=== PATIENT | male | born 1985 | race Caucasian/White ===

== ENCOUNTER 2018-03-02 13:18 | Emergency (ER) | payer MEDICAID ==
[~2018-03-02] VITALS: Ht 180.3 cm; Wt 121.3 kg
[~2018-03-02 13:18] MED LIST: ALPR1TAB2; AMPH20CA7
[2018-03-02] MEDS ORDERED: HYDROmorphone 2 MG/ML, 1ML ONE (13:58)
[2018-03-02] MEDS ORDERED: ONDANSETRON ODT 4 MG PO ONE (14:00)
[2018-03-02] MEDS ORDERED: ONDANSETRON ODT 4 MG ONE (14:00)
[2018-03-02] MEDS ORDERED: HYDROmorphone 1 MG/ML, 1ML IM ONE (14:00)
[2018-03-02 14:09] VITALS: BP 113/75
[2018-03-02 14:13] LABS: BASOPHILS # (AUTO) 0.03 x10^3/uL (0-0.1); BASOPHILS % (AUTO) 0 % (0-1); EOSINOPHILS # (AUTO) 0.28 x10^3/uL (0-0.4); EOSINOPHILS % (AUTO) 4 % (1-7); LYMPHOCYTES # (AUTO) 1.19 x10^3/uL (1-3.4); LYMPHOCYTES % (AUTO) 18 % (22-44); MD NO; MEAN CORPUSCULAR HEMOGLOBIN 33.9 pg (27.5-34.5); MEAN CORPUSCULAR HGB CONC 34.8 g/dL (33.2-36.2); MEAN CORPUSCULAR VOLUME 97.5 fL (81-97); MEAN PLATELET VOLUME 8.1 fL (7.4-10.4); MONOCYTES # (AUTO) 0.77 x10^3/uL (0.2-0.8); MONOCYTES % (AUTO) 12 % (2-9); NEUTROPHILS # (AUTO) 4.21 x10^3/uL (1.8-6.8); NEUTROPHILS % (AUTO) 65 % (42-75); PLATELET COUNT 231 x10^3/uL (130-400); RED CELL DISTRIBUTION WIDTH 12.6 % (9.4-14.8)
[2018-03-02 14:22] LABS: ALANINE AMINOTRANSFERASE 28 U/L (12-78); ALBUMIN 3.8 g/dL (3.4-5.0); ANION GAP 5 mmol/L (5-15); CALCIUM 8.7 mg/dL (8.5-10.1); CHLORIDE 106 mmol/L (98-107); CREATININE 1.26 mg/dL (0.7-1.3)
[2018-03-02 14:24] LABS: ALKALINE PHOSPHATASE 77 U/L (45-117); BILIRUBIN,TOTAL 0.5 mg/dL (0.2-1.0); TOTAL PROTEIN 7.6 g/dL (6.4-8.2)
== END 2018-03-02 15:16 | disposition home or self-care (01) ==
LOC: ED 14:53
DX: K29.20 Alcoholic gastritis without bleeding (principal); K21.9 Gastro-esophageal reflux disease without esophagitis
CPT/HCPCS: 36415; 76700; 80053; 83690; 85025; 96372; 99285; J1170; Q0162

== ENCOUNTER 2019-06-21 14:21 | Inpatient (IN) | payer MEDICAID, OTHER ==
[~2019-06-21] VITALS: Ht 180.3 cm; Wt 114.5 kg
--- NOTE | 2019-06-21 14:51 | NUR ---
Pt presents to ED with c/o epigastric pain for two days and feeling "filled with gas". Pt reports soft stools and vomiting for two days. Pt states, "I have had gastritis before from drinking too much, but this doesn't feel like this. I drink 5-6 glasses of vodka a day and I use marijuana in the off season when I am unemployed. 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 Call light within reach and spouse at bedside.
[2019-06-21] MEDS ORDERED: SODIUM CHLORIDE FLUSH 10ML SYR IVF ONE (15:30)
[2019-06-21] MEDS ORDERED: ONDANSETRON 2MG/ML, 2ML IVPush ONE (15:30)
[2019-06-21] MEDS ORDERED: FAMOTIDINE 20 MG/2 ML IV ONE (15:30)
[2019-06-21] MEDS ORDERED: HYDROmorphone 1 MG/ML, 1ML INJ ONE ×4 (15:31→18:01)
[2019-06-21] MEDS ORDERED: ONDANSETRON 2MG/ML, 2ML ONE (15:31)
[2019-06-21] MEDS ORDERED: FAMOTIDINE 20 MG/2 ML ONE (15:31)
[2019-06-21] MEDS: HYDROmorphone 2 MG/ML, 1ML IVPush PRN ×4 (15:41→23:34)
[2019-06-21 15:44] LABS: BASOPHILS # (AUTO) 0.02 x10^3/uL (0-0.1); BASOPHILS % (AUTO) 0 % (0-1); EOSINOPHILS # (AUTO) 0.07 x10^3/uL (0-0.4); EOSINOPHILS % (AUTO) 1 % (1-7); LYMPHOCYTES # (AUTO) 1.05 x10^3/uL (1-3.4); LYMPHOCYTES % (AUTO) 11 % (22-44); MD NO; MEAN CORPUSCULAR HEMOGLOBIN 33.9 pg (27.5-34.5); MEAN CORPUSCULAR VOLUME 99.8 fL (81-97); MEAN PLATELET VOLUME 7.3 fL (7.4-10.4); MONOCYTES # (AUTO) 0.91 x10^3/uL (0.2-0.8); MONOCYTES % (AUTO) 10 % (2-9); NEUTROPHILS # (AUTO) 7.21 x10^3/uL (1.8-6.8); NEUTROPHILS % (AUTO) 78 % (42-75); PLATELET COUNT 233 x10^3/uL (130-400); RED BLOOD COUNT 4.51 x10^6/uL (4.38-5.82); RED CELL DISTRIBUTION WIDTH 13.9 % (9.4-14.8)
[2019-06-21 15:49] LABS: ALANINE AMINOTRANSFERASE 39 U/L (12-78); ALBUMIN 4.1 g/dL (3.4-5.0); ANION GAP 7 mmol/L (5-15); CALCIUM 9.2 mg/dL (8.5-10.1); CHLORIDE 105 mmol/L (98-107); CREATININE 0.91 mg/dL (0.7-1.3)
[2019-06-21 15:51] LABS: ALKALINE PHOSPHATASE 103 U/L (45-117); BILIRUBIN,TOTAL 0.6 mg/dL (0.2-1.0); TOTAL PROTEIN 7.8 g/dL (6.4-8.2)
[2019-06-21] MEDS ORDERED: MAALOX/HYOSCYAMINE/LIDOCAINE 45 ML BTL ONE (16:51)
[2019-06-21] MEDS ORDERED: SODIUM CHLORIDE 0.9% 1,000ML IVBOLUS ONE (17:00)
[2019-06-21] MEDS ORDERED: MAALOX/HYOSCYAMINE/LIDOCAINE 45 ML BTL PO ONE (17:00)
[2019-06-21] MEDS ORDERED: HYDROmorphone 2 MG/ML, 1ML IVPush PRN (17:00)
--- NOTE | 2019-06-21 17:03 | NUR ---
Pt transfered on gurney from ED to CT at this time. NADN. No needs expressed. PIV fluids infusing per EMAR. Meds given per EMAR.
--- NOTE | 2019-06-21 17:22 | NUR ---
Pt back to room from CT.
[2019-06-21] MEDS ORDERED: HYDROmorphone 1 MG/ML, 1ML INJ IVPush PRN (18:00)
[2019-06-21] MEDS ORDERED: SODIUM CHLORIDE FLUSH 10ML SYR IVF PRN (18:00)
--- NOTE | 2019-06-21 18:14 | NUR ---
Provided report to ZENA Thomas. All questions answered. Pt ready to transfer to floor from ED.
[2019-06-21] MEDS ORDERED: HYDROmorphone 1 MG/ML, 1ML INJ IV ONE (18:30)
--- NOTE | 2019-06-21 18:38 | NUR ---
Pt transfered to floor from ED and left with all personal belongings. NADN. No needs expressed.
[2019-06-21] MEDS ORDERED: ACETAMINOPHEN 325 MG TABLET PO PRN (19:00)
[2019-06-21] MEDS ORDERED: LIDODERM 5% PATCH TD PRN (19:00)
[2019-06-21] MEDS ORDERED: LORazepam 2 MG/ML, 1ML IV PRN ×3 (19:00)
[2019-06-21] MEDS ORDERED: ONDANSETRON 2MG/ML, 2ML IVPush PRN (19:00)
[2019-06-21] MEDS ORDERED: DOCUSATE 100 MG CAPSULE PO PRN (19:00)
[2019-06-21] MEDS ORDERED: FOLIC ACID 5 MG/ML IM ONE (19:00)
[2019-06-21 19:03] VITALS: BP 147/87
[2019-06-21] MEDS ORDERED: HYDROmorphone 2 MG/ML, 1ML ONE (19:28)
[2019-06-21] MEDS ORDERED: LIDODERM REMOVE PATCH NOTE XX PRN (19:30)
[2019-06-21] MEDS: SODIUM CHLORIDE 0.9% 1,000 ML IV SCH (19:48)
[2019-06-21] MEDS ORDERED: FOLIC ACID 1 MG TABLET PO ONE (20:00)
[2019-06-21] MEDS: LORazepam 2 MG/ML, 1ML IV PRN ×2 (20:03→23:34)
[2019-06-21] MEDS ORDERED: THIAMINE 100MG TABLET PO SCH (22:31)
[2019-06-22] MEDS: NICOTINE 14MG/24 HR PATCH.TD24 TD SCH ×2 (01:27→15:47)
[2019-06-22] MEDS: LORazepam 2 MG/ML, 1ML IV PRN ×4 (01:51→18:30)
[2019-06-22 02:07] VITALS: BP 140/75
[2019-06-22] MEDS: SODIUM CHLORIDE 0.9% 1,000 ML IV SCH ×3 (03:29→22:20)
[2019-06-22] MEDS: HYDROmorphone 2 MG/ML, 1ML IVPush PRN ×6 (03:29→23:36)
[2019-06-22 05:07] LABS: MD YES; MEAN CORPUSCULAR HEMOGLOBIN 33.6 pg (27.5-34.5); MEAN CORPUSCULAR HGB CONC 33.7 g/dL (33.2-36.2); MEAN CORPUSCULAR VOLUME 99.7 fL (81-97); MEAN PLATELET VOLUME 7.4 fL (7.4-10.4); PLATELET COUNT 183 x10^3/uL (130-400); RED BLOOD COUNT 4.03 x10^6/uL (4.38-5.82)
[2019-06-22 05:11] LABS: ANION GAP 7 mmol/L (5-15); CALCIUM 7.9 mg/dL (8.5-10.1); CHLORIDE 104 mmol/L (98-107); CREATININE 0.94 mg/dL (0.7-1.3)
[2019-06-22 07:01] LABS: <PLATELET ESTIMATE> ADEQUATE; <RBC MORPHOLOGY> NORMAL; EOS#(MANUAL) 0.09 x10^3/uL (0.0-0.4); EOS% (MANUAL) 1 % (1-7); LYMPHS% (MANUAL) 7 % (22-44); MONOS#(MANUAL) 0.17 x10^3/uL (0.3-2.7); MONOS% (MANUAL) 2 % (2-9); SEG#(MANUAL) 7.65 x10^3/uL (1.8-6.8); SEGS% (MANUAL) 90 % (42-75)
[2019-06-22 07:02] LABS: <PLT MORPHOLOGY> NORMAL PLT MORPH
[2019-06-22] MEDS ORDERED: FAMOTIDINE 20 MG/2 ML IVPush SCH (09:00)
[2019-06-22] MEDS ORDERED: MAGNESIUM SULFATE PMX 2GM/50ML 50 ML IV ONE (09:00)
[2019-06-22 09:23] VITALS: BP 143/90
[2019-06-22 09:38] LABS: CHOLESTEROL, TOTAL 205 mg/dL (140-239); TRIGLYCERIDES 85 mg/dL (50-200); VLDL CHOLESTEROL 17 mg/dL (0-25)
[2019-06-22 09:40] LABS: CHOL/HDL RATIO 2.4; HDL CHOL % 41 % (26-37); HDL CHOLESTEROL (DIRECT) 85 mg/dL (40-60); LDL CHOLESTEROL,CALCULATED 103 mg/dL (54-169); LDL/HDL RATIO 1.2 (0.5-3.0)
[2019-06-22] MEDS: MULTIVITAMINS/MINERALS TABLET PO SCH (09:53)
[2019-06-22] MEDS: THIAMINE 100MG TABLET PO SCH (09:53)
[2019-06-22 12:28] VITALS: BP 165/99
[2019-06-22] MEDS ORDERED: LORazepam 1MG TABLET PO PRN ×4 (18:30)
[2019-06-22 20:09] VITALS: BP 164/109
[2019-06-22 20:47] VITALS: BP 149/88
[2019-06-22] MEDS: LORazepam 0.5MG TABLET PO PRN (20:50)
[2019-06-23 01:46] VITALS: BP 139/90
[2019-06-23] MEDS: HYDROmorphone 2 MG/ML, 1ML IVPush PRN ×4 (04:59→15:41)
[2019-06-23] MEDS: SODIUM CHLORIDE 0.9% 1,000 ML IV SCH (06:27)
[2019-06-23] MEDS: LORazepam 0.5MG TABLET PO PRN ×2 (06:33→13:54)
[2019-06-23 07:20] VITALS: BP 148/102
[2019-06-23] MEDS: MULTIVITAMINS/MINERALS TABLET PO SCH (08:46)
[2019-06-23] MEDS: THIAMINE 100MG TABLET PO SCH (08:46)
[2019-06-23] MEDS ORDERED: THIAMINE 100 MG in DEXTROSE 5% 50 ML IVPB SCH (09:00)
[2019-06-23 12:56] VITALS: BP 149/107
[2019-06-23] MEDS: NICOTINE 14MG/24 HR PATCH.TD24 TD SCH (15:34)
[2019-06-23 18:39] VITALS: BP 143/81
[2019-06-23] MEDS ORDERED: SODIUM CHLORIDE 0.9% 1,000 ML IV SCH (18:43)
[2019-06-23] MEDS: OXYcodone/APAP 5/325MG TABLET PO PRN (22:32)
[2019-06-24 03:20] VITALS: BP 153/99
[2019-06-24] MEDS: OXYcodone/APAP 5/325MG TABLET PO PRN ×2 (03:22→08:45)
[2019-06-24 07:55] VITALS: BP 138/75
[2019-06-24] MEDS: THIAMINE 100MG TABLET PO SCH (08:45)
[2019-06-24] MEDS: MULTIVITAMINS/MINERALS TABLET PO SCH (08:45)
[2019-06-24] MEDS ORDERED: AMLODIPINE 5 MG TABLET PO SCH (09:00)
[2019-06-24] MEDS ORDERED: OXYcodone/APAP 5/325MG PO (10:57)
[2019-06-24] MEDS ORDERED: THIA100T67 PO (10:57)
[2019-06-24] MEDS ORDERED: AMLO-150 PO (10:57)
== END 2019-06-24 12:25 | disposition home or self-care (01) | DRG 439 ==
LOC: ED 16:46 → EDIP 17:57 → 3N 19:20 → DCLOUNGE 06-24 12:21
PROVIDERS: ADMIT Internal Medicine; ATTEND Internal Medicine
DX: K85.20 Alcohol induced acute pancreatitis without necrosis or infection (principal); F10.288 Alcohol dependence with other alcohol-induced disorder; F10.239 Alcohol dependence with withdrawal, unspecified; F12.90 Cannabis use, unspecified, uncomplicated; E83.42 Hypomagnesemia; E66.9 Obesity, unspecified; F17.210 Nicotine dependence, cigarettes, uncomplicated; N20.0 Calculus of kidney; Z79.899 Other long term (current) drug therapy; Z82.49 Family history of ischemic heart disease and other diseases of the circulatory system; K21.9 Gastro-esophageal reflux disease without esophagitis; Z71.41 Alcohol abuse counseling and surveillance of alcoholic
CPT/HCPCS: 36415; 99285; J3490; 74176; 76705; 80048; 80053; 80061; 80307; 83690; 83735; 85025; 93005; G0378; J1170; J2405; J2060; J3475; J7030

== ENCOUNTER 2019-07-12 19:22 | Emergency (ER) | payer OTHER ==
[~2019-07-12] VITALS: Ht 177.8 cm; Wt 111.9 kg
[~2019-07-12 19:22] MED LIST changes: +AMLO-150 PO; +OXYcodone/APAP 5/325MG PO; +THIA100T67 PO
[2019-07-12] MEDS ORDERED: DIAZEPAM 5 MG TABLET ONE (20:00)
[2019-07-12] MEDS ORDERED: KETOROLAC 30 MG/1 ML IM ONE (20:00)
[2019-07-12] MEDS ORDERED: KETOROLAC 30 MG/1 ML ONE (20:00)
[2019-07-12] MEDS ORDERED: DIAZEPAM 5 MG TABLET PO ONE (20:00)
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
[2019-07-12] MEDS ORDERED: MORPHINE SULFATE 4 MG/ML, 1ML ONE (21:59)
[2019-07-12] MEDS ORDERED: HYDROcodone/APAP 5/325 TABLET PO ONE (22:00)
[2019-07-12] MEDS ORDERED: MORPHINE SULFATE 4 MG/ML, 1ML IVPush ONE (22:00)
[2019-07-12 22:04] VITALS: BP 146/89
--- NOTE | 2019-07-12 22:44 | NUR ---
Discharge instructions given. All questions and concerns addressed. Patient ambulatory with a steady gait. Belongings with patient.
== END 2019-07-12 22:45 | disposition home or self-care (01) ==
LOC: ED 22:33
DX: S22.019A Unspecified fracture of first thoracic vertebra, initial encounter for closed fracture (principal); S22.029A Unspecified fracture of second thoracic vertebra, initial encounter for closed fracture; S20.211A Contusion of right front wall of thorax, initial encounter; G89.11 Acute pain due to trauma; R07.89 Other chest pain; F17.210 Nicotine dependence, cigarettes, uncomplicated; Z72.9 Problem related to lifestyle, unspecified; V47.6XXA Car passenger injured in collision with fixed or stationary object in traffic accident, initial encounter; Y93.89 Activity, other specified; Y92.488 Other paved roadways as the place of occurrence of the external cause; Y99.8 Other external cause status
CPT/HCPCS: 71250; 72125; 72128; 93005; 96372; 96374; 99284; J1885; J2270

== ENCOUNTER 2020-05-18 10:28 | Emergency (ER) | payer MEDICAID ==
[~2020-05-18] VITALS: Ht 180.3 cm; Wt 123.3 kg
[2020-05-18] MEDS ORDERED: hydrOXyzine 50MG TABLET ONE (11:12)
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
--- NOTE | 2020-05-18 11:22 | NUR ---
ATARAX GIVEN PER EMAR
[2020-05-18] MEDS ORDERED: hydrOXyzine 50MG TABLET PO ONE (11:30)
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
[2020-05-18 12:16] VITALS: BP 133/90
== END 2020-05-18 12:29 | disposition home or self-care (01) ==
LOC: ED 12:03
DX: F41.1 Generalized anxiety disorder (principal); R07.89 Other chest pain; R00.2 Palpitations; R00.0 Tachycardia, unspecified; F17.200 Nicotine dependence, unspecified, uncomplicated; I10 Essential (primary) hypertension
CPT/HCPCS: 71045; 93005; 99283